=== PATIENT | female | born 1980 | race Hispanic/Latino ===

== ENCOUNTER 2019-04-12 13:06 | Emergency (ER) | payer SELFPAY ==
--- NOTE | 2019-04-12 14:17 | ER ---
Nurse's Notes [facility] Name: Lauren Wilks Age: 39 yrs Sex: Female : 1980 Arrival Date: 04/12/2019 Time: 13:08 Bed 24 Private MD: Diagnosis: Conjunctivitis Presentation: 04/12 13:16 Presenting complaint: Patient states: redness to eyes that began Henri. Transition of aa5 care: patient was not received from another setting of care. Risk Assessment: Do you want to hurt yourself or someone else? Patient reports no desire to harm self or others. Initial Sepsis Screen: Does the patient meet any 2 criteria? No. Patient's initial sepsis screen is negative. Does the patient have a suspected source of infection? No. Patient's initial sepsis screen is negative. Care prior to arrival: None. 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 - Social history:: Smoking status: Patient/guardian denies using tobacco. - Ebola Screening: : No symptoms or risks identified at this time. - Family history:: not pertinent. Screenin:55 Abuse screen: Denies threats or abuse. Denies injuries from another. Nutritional aj screening: No deficits noted. Tuberculosis screening: No symptoms or risk factors identified. Fall Risk None identified. Assessment: 13:55 General: Appears in no apparent distress. comfortable, Behavior is calm, cooperative, aj appropriate for age. Pain: Denies pain. Neuro: Level of Consciousness is awake, alert, obeys commands, Oriented to person, place, time, situation, Appropriate for age. Respiratory: Airway is patent Respiratory effort is even, unlabored, Respiratory pattern is regular, symmetrical. EENT: Reports pain in right eye and left eye redness to bilateral eyes. Derm: Skin is intact, is healthy with good turgor, Skin is pink, warm \T\ dry. normal. Vital Signs: 13:18 BP 161 / 89; Pulse 85; Resp 18 S; Temp 98.6(TE); Pulse Ox 100% on R/A; Weight 86.18 kg aa5 (R); Height 5 ft. 4 in. (162.56 cm) (R); Pain 0/10; 13:18 Body Mass Index 32.61 (86.18 kg, 162.56 cm) aa5 ED Course: 13:08 Patient arrived in ED. rg4 13:16 Arm band placed on. aa5 13:17 Triage completed. aa5 13:49 Norman De Paz MD is Attending Physician. [facility] 13:50 Alma Delia Rader, RN is Primary Nurse. aj 13:55 Patient has correct armband on for positive identification. aj 13:55 No provider procedures requiring assistance completed. aj 14:14 Tracie Vargas MD is Referral Physician. [facility] 14:28 Patient did not have IV access during this emergency room visit. ss Administered Medications: No medications were administered Outcome: 14:16 Discharge ordered by . [facility] 14:28 Discharged to home ambulatory. 14:28 Condition: good 14:28 Discharge instructions given to patient, Instructed on discharge instructions, follow up and referral plans. medication usage, Demonstrated understanding of instructions, follow-up care, medications, Prescriptions given X 3. 14:28 Patient left the ED. ss Signatures: Alma Delia Rader, RN Norman Evans MD MD cha Calderon, Audri, RN RN aa5 Michelle Bello RN RN ss Garcia, Rubi rg4 Corrections: (The following items were deleted from the chart) 13:19 13:18 LMP 03/03/2019 aa5 aa5
--- NOTE | 2019-04-12 14:17 | EDPHYS ---
Physician Documentation [facility] Name: Lauren Wilks Age: 39 yrs Sex: Female : 1980 Arrival Date: 04/12/2019 Time: 13:08 Bed 24 Private MD: ED Physician Norman De Paz HPI: 04/12 14:08 This 39 yrs old Female presents to ER via Ambulatory with complaints of gen Redness of Eye, Eye Pain. 14:08 The patient is experiencing matting or discharge, pain, redness, The patient sustained gen Unknown. to both eyes. Onset: The symptoms/episode began/occurred 3 day(s) ago. Duration: the symptoms are continuous. Aggravated by blinking, closing eye, Alleviated by nothing. Associated signs and symptoms: Pertinent positives: None. Pertinent negatives: None. Patient does not utilize any form of vision correction. Severity of symptoms: At their worst the symptoms were mild moderate in the emergency department the symptoms are unchanged. The patient has not experienced similar symptoms in the past. 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 - Social history:: Smoking status: Patient/guardian denies using tobacco. - Ebola Screening: : No symptoms or risks identified at this time. - Family history:: not pertinent. ROS: 14:08 Constitutional: Negative for fever, chills, and weight loss, ENT: Negative for injury, gen pain, and discharge, Neck: Negative for injury, pain, and swelling, Cardiovascular: Negative for chest pain, palpitations, and edema, Respiratory: Negative for shortness of breath, cough, wheezing, and pleuritic chest pain, Abdomen/GI: Negative for abdominal pain, nausea, vomiting, diarrhea, and constipation, Back: Negative for injury and pain, : Negative for injury, bleeding, discharge, and swelling, MS/Extremity: Negative for injury and deformity, Skin: Negative for injury, rash, and discoloration, Neuro: Negative for headache, weakness, numbness, tingling, and seizure, Psych: Negative for depression, anxiety, suicide ideation, homicidal ideation, and hallucinations, Allergy/Immunology: Negative for hives, rash, and allergies, Endocrine: Negative for neck swelling, polydipsia, polyuria, polyphagia, and marked weight changes, Hematologic/Lymphatic: Negative for swollen nodes, abnormal bleeding, and unusual bruising. 14:08 Eyes: Positive for pain, photophobia, redness, of the outer aspect of conjuctiva of right eye, inner aspect of conjuctiva of right eye, outer aspect of conjuctiva of left eye and inner aspect of conjunctiva of left eye. Exam: 14:08 Constitutional: This is a well developed, well nourished patient who is awake, alert, gen and in no acute distress. Head/Face: Normocephalic, atraumatic. ENT: Nares patent. No nasal discharge, no septal abnormalities noted. Tympanic membranes are normal and external auditory canals are clear. Oropharynx with no redness, swelling, or masses, exudates, or evidence of obstruction, uvula midline. Mucous membranes moist. Neck: Trachea midline, no thyromegaly or masses palpated, and no cervical lymphadenopathy. Supple, full range of motion without nuchal rigidity, or vertebral point tenderness. No Meningismus. Chest/axilla: Normal chest wall appearance and motion. Nontender with no deformity. No lesions are appreciated. Cardiovascular: Regular rate and rhythm with a normal S1 and S2. No gallops, murmurs, or rubs. Normal PMI, no JVD. No pulse deficits. Respiratory: Lungs have equal breath sounds bilaterally, clear to auscultation and percussion. No rales, rhonchi or wheezes noted. No increased work of breathing, no retractions or nasal flaring. Abdomen/GI: Soft, non-tender, with normal bowel sounds. No distension or tympany. No guarding or rebound. No evidence of tenderness throughout. Skin: Warm, dry with normal turgor. Normal color with no rashes, no lesions, and no evidence of cellulitis. MS/ Extremity: Pulses equal, no cyanosis. Neurovascular intact. Full, normal range of motion. Neuro: Awake and alert, GCS 15, oriented to person, place, time, and situation. Cranial nerves II-XII grossly intact. Motor strength 5/5 in all extremities. Sensory grossly intact. Cerebellar exam normal. Normal gait. Psych: Awake, alert, with orientation to person, place and time. Behavior, mood, and affect are within normal limits. 14:08 Eyes: Periorbital structures: appear normal, no acute changes. Vital Signs: 13:18 BP 161 / 89; Pulse 85; Resp 18 S; Temp 98.6(TE); Pulse Ox 100% on R/A; Weight 86.18 kg aa5 (R); Height 5 ft. 4 in. (162.56 cm) (R); Pain 0/10; 13:18 Body Mass Index 32.61 (86.18 kg, 162.56 cm) aa5 MDM: 13:50 Patient medically screened. [facility] 14:14 Data reviewed: vital signs, nurses notes. [facility] Administered Medications: No medications were administered Disposition: 04/12/19 14:16 Discharged to Home. Impression: Conjunctivitis. - Condition is Stable. - Discharge Instructions: Bacterial Conjunctivitis. - Prescriptions for Polytrim 10,000 unit- 1 mg/mL Ophthalmic drops - instill 1 drop by OPHTHALMIC route every 6 hours; 10 drop. Tylenol- Codeine #3 300-30 mg Oral Tablet - take 2 tablets by ORAL route every 6 hours As needed; 15 tablet. Claritin 10 mg Oral Tablet - take 1 tablet by ORAL route once daily As needed; 30 tablet. - Medication Reconciliation Form, Thank You Letter, Antibiotic Education, Prescription Opioid Use form. - Follow up: Private Physician; When: 2 - 3 days; Reason: Recheck today's complaints, Continuance of care, Re-evaluation by your physician. Follow up: Tracie Vargas MD; When: 1 - 2 days; Reason: Recheck today's complaints, Re-evaluation by your physician. - Problem is new. - Symptoms have improved. Signatures: Norman De Paz MD MD cha Calderon, Audri, RN RN aa5 Michelle Bello RN RN ss Corrections: (The following items were deleted from the chart) 14:28 14:16 04/12/2019 14:16 Discharged to Home. Impression: Conjunctivitis. Condition is ss Stable. Forms are Medication Reconciliation Form, Thank You Letter, Antibiotic Education, Prescription Opioid Use. Follow up: Private Physician; When: 2 - 3 days; Reason: Recheck today's complaints, Continuance of care, Re-evaluation by your physician. Follow up: Tracie Vargas; When: 1 - 2 days; Reason: Recheck today's complaints, Re-evaluation by your physician. Problem is new. Symptoms have improved. gen
[2019-04-12 14:36] VITALS: BP 161/89; TEMP 98.6; O2SAT 100
== END 2019-04-12 14:28 | disposition home or self-care (01) ==
LOC: ER 13:06
DX: H10.9 Unspecified conjunctivitis (principal); J30.2 Other seasonal allergic rhinitis
CPT/HCPCS: 99282

== ENCOUNTER 2019-08-14 08:46 | Emergency (ER) | payer SELFPAY ==
--- OUTSIDE RECORDS SUMMARY | 2019-08-14 08:48 | XMS REPORT ---
:1980 Author Organization [facility] Address [address] Marrufo [address] [place] [id number] Care Team Providers Name Role Phone Unavailable Unavailable Unavailable Problems This patient has no known problems. Allergies, Adverse Reactions, Alerts This patient has no known allergies or adverse reactions. Medications This patient has no known medications.
[2019-08-14] MEDS ORDERED: IBUPROFEN 400 MG TAB ONE (09:36)
[2019-08-14] MEDS ORDERED: IBUPROFEN 200 MG TAB PO ONE (09:36)
--- NOTE | 2019-08-14 10:01 | EDPHYS ---
Physician Documentation [facility] Name: Lauren Wilks Age: 39 yrs Sex: Female : 1980 Arrival Date: 08/14/2019 Time: 08:47 Bed 6 Private MD: RIAT Physician Norman De Paz HPI: 08/14 09:32 This 39 yrs old Female presents to ER via Ambulatory with complaints of Foot gen Pain. 09:32 The patient presents with decreased range of motion, pain, that is chronic. The gen complaints affect the right foot, arch of right foot and dorsum of right foot. Context: The problem was sustained at home, at an unknown location. Onset: The symptoms/episode began/occurred 5 week(s) ago. Modifying factors: The symptoms are alleviated by nothing, elevation of extremity, the symptoms are aggravated by weight bearing, movement, wearing shoes. Associated signs and symptoms: The patient has no apparent associated signs or symptoms. Severity of symptoms: At their worst the symptoms were moderate, in the emergency department the symptoms are unchanged. The patient has not experienced similar symptoms in the past. Historical: - Allergies: 09:16 No Known Allergies; sv - PMHx: 09:16 seasonal allergies; sv - PSHx: 09:16 Appendectomy; sv - Immunization history:: Adult Immunizations up to date. - Ebola Screening: : No symptoms or risks identified at this time. - Family history:: not pertinent. - Social history:: Smoking status: Patient/guardian denies using tobacco. ROS: 09:32 Constitutional: Negative for fever, chills, and weight loss, Eyes: Negative for injury, gen pain, redness, and discharge, ENT: Negative for injury, pain, and discharge, Neck: Negative for injury, pain, and swelling, Cardiovascular: Negative for chest pain, palpitations, and edema, Respiratory: Negative for shortness of breath, cough, wheezing, and pleuritic chest pain, Abdomen/GI: Negative for abdominal pain, nausea, vomiting, diarrhea, and constipation, Back: Negative for injury and pain, : Negative for injury, bleeding, discharge, and swelling, Skin: Negative for injury, rash, and discoloration, Neuro: Negative for headache, weakness, numbness, tingling, and seizure, Psych: Negative for depression, anxiety, suicide ideation, homicidal ideation, and hallucinations, Allergy/Immunology: Negative for hives, rash, and allergies, Endocrine: Negative for neck swelling, polydipsia, polyuria, polyphagia, and marked weight changes, Hematologic/Lymphatic: Negative for swollen nodes, abnormal bleeding, and unusual bruising. 09:32 MS/extremity: Positive for decreased range of motion, pain, of the right foot. Exam: 09:32 Constitutional: This is a well developed, well nourished patient who is awake, alert, gen and in no acute distress. Head/Face: Normocephalic, atraumatic. Eyes: Pupils equal round and reactive to light, extra-ocular motions intact. Lids and lashes normal. Conjunctiva and sclera are non-icteric and not injected. Cornea within normal limits. Periorbital areas with no swelling, redness, or edema. ENT: Nares patent. No nasal discharge, no septal abnormalities noted. Tympanic membranes are normal and external auditory canals are clear. Oropharynx with no redness, swelling, or masses, exudates, or evidence of obstruction, uvula midline. Mucous membranes moist. Neck: Trachea midline, no thyromegaly or masses palpated, and no cervical lymphadenopathy. Supple, full range of motion without nuchal rigidity, or vertebral point tenderness. No Meningismus. Chest/axilla: Normal chest wall appearance and motion. Nontender with no deformity. No lesions are appreciated. Cardiovascular: Regular rate and rhythm with a normal S1 and S2. No gallops, murmurs, or rubs. Normal PMI, no JVD. No pulse deficits. Respiratory: Lungs have equal breath sounds bilaterally, clear to auscultation and percussion. No rales, rhonchi or wheezes noted. No increased work of breathing, no retractions or nasal flaring. Abdomen/GI: Soft, non-tender, with normal bowel sounds. No distension or tympany. No guarding or rebound. No evidence of tenderness throughout. Back: No spinal tenderness. No costovertebral tenderness. Full range of motion. Skin: Warm, dry with normal turgor. Normal color with no rashes, no lesions, and no evidence of cellulitis. Neuro: Awake and alert, GCS 15, oriented to person, place, time, and situation. Cranial nerves II-XII grossly intact. Motor strength 5/5 in all extremities. Sensory grossly intact. Cerebellar exam normal. Normal gait. Psych: Awake, alert, with orientation to person, place and time. Behavior, mood, and affect are within normal limits. 09:32 Musculoskeletal/extremity: Extremities: pain, ROM: limited active range of motion due to pain, Circulation is intact in all extremities. Sensation intact. Compartment Syndrome exam of affected extremity: is normal. Joints: All joints are normal except Weight bearing: can bear weight with assistance only, DVT Exam: no swelling, no tenderness, negative Homans' sign noted on exam, no appreciated bluish discoloration, no erythema, no increased warmth, pain. Vital Signs: 09:16 BP 136 / 87; Pulse 85; Resp 18; Temp 98; Pulse Ox 99% ; Weight 88.45 kg; Height 5 ft. 4 sv in. (162.56 cm); Pain 610; 09:16 Body Mass Index 33.47 (88.45 kg, 162.56 cm) sv MDM: 09:12 Patient medically screened. [facility] 09:39 Data reviewed: vital signs, nurses notes, radiologic studies, plain films. [facility] 08/14 09:28 Order name: Foot Right 3 View XRAY [facility] 08/14 09:28 Order name: Walking boot; Complete Time: 10:24 [facility] Administered Medications: 09:39 Drug: Motrin 600 mg Route: PO; sv 10:24 Follow up: Response: No adverse reaction sv Disposition: 08/14/19 10:00 Discharged to Home. Impression: Pain in right foot, Strain of unspecified muscle and tendon at ankle and foot level. - Condition is Stable. - Discharge Instructions: Foot Pain. - Prescriptions for Ibuprofen 600 mg Oral Tablet - take 1 tablet by ORAL route every 8 hours As needed take with food; 21 tablet. Tylenol- Codeine #3 300-30 mg Oral Tablet - take 2 tablets by ORAL route every 6 hours As needed; 26 tablet. - Medication Reconciliation Form, Thank You Letter, Antibiotic Education, Prescription Opioid Use form. - Follow up: Private Physician; When: 2 - 3 days; Reason: Recheck today's complaints, Continuance of care, Re-evaluation by your physician. Follow up: Dr. Asim Arriaga; When: 2 - 3 days; Reason: Recheck today's complaints, Continuance of care, Re-evaluation by your physician. - Problem is new. - Symptoms have improved. Signatures: Dispatcher [employer] Jo Ann Gill RN RN sv Anderson, Corey, MD MD cha Corrections: (The following items were deleted from the chart) 10:26 10:00 08/14/2019 10:00 Discharged to Home. Impression: Pain in right foot; Strain of sv unspecified muscle and tendon at ankle and foot level. Condition is Stable. Discharge Instructions: Foot Pain. Prescriptions for Ibuprofen 600 mg Oral Tablet - take 1 tablet by ORAL route every 8 hours As needed take with food; 21 tablet, Tylenol-Codeine #3 300-30 mg Oral Tablet - take 2 tablets by ORAL route every 6 hours As needed; 26 tablet. and Forms are Medication Reconciliation Form, Thank You Letter, Antibiotic Education, Prescription Opioid Use. Follow up: Private Physician; When: 2 - 3 days; Reason: Recheck today's complaints, Continuance of care, Re-evaluation by your physician. Follow up: Dr. Asim Arriaga; When: 2 - 3 days; Reason: Recheck today's complaints, Continuance of care, Re-evaluation by your physician. Problem is new. Symptoms have improved. gen
--- NOTE | 2019-08-14 10:01 | ER ---
Nurse's Notes [facility] Name: Lauren Wilks Age: 39 yrs Sex: Female : 1980 Arrival Date: 08/14/2019 Time: 08:47 Bed 6 Private MD: Diagnosis: Pain in right foot;Strain of unspecified muscle and tendon at ankle and foot level Presentation: 08/14 09:11 Presenting complaint: Patient states: right foot pain x 1.5 months, reports she may sv have stepped wrong or twisted her foot when the pain started. Feels like a "pulling sensation". Transition of care: patient was not received from another setting of care. Onset of symptoms was June 2019. Risk Assessment: Do you want to hurt yourself or someone else? Patient reports no desire to harm self or others. Initial Sepsis Screen: Does the patient meet any 2 criteria? No. Patient's initial sepsis screen is negative. Does the patient have a suspected source of infection? No. Patient's initial sepsis screen is negative. Care prior to arrival: None. 09:11 Method Of Arrival: Ambulatory sv 09:11 Acuity: BRIANA 4 sv Triage Assessment: 09:15 General: Appears in no apparent distress. uncomfortable, well groomed, well developed, sv Behavior is calm, cooperative, appropriate for age. Pain: Complains of pain in lateral side of right foot Pain currently is 6 out of 10 on a pain scale. Quality of pain is described as tender, Pain began 1.5 months ago Is intermittent, episodic, Aggravated by weight bearing. Neuro: Level of Consciousness is awake, alert, obeys commands, Oriented to person, place, time, situation, Moves all extremities. Full function Gait is steady. Cardiovascular: Patient's skin is warm and dry. Pulses are 3+ in right dorsalis pedis artery. Respiratory: Respiratory effort is even, unlabored, Respiratory pattern is regular, symmetrical. Derm: Skin is pink, warm \\T\\ dry. Musculoskeletal: Range of motion: intact in all extremities. Historical: - Allergies: 09:16 No Known Allergies; sv - PMHx: 09:16 seasonal allergies; sv - PSHx: 09:16 Appendectomy; sv - Immunization history:: Adult Immunizations up to date. - Ebola Screening: : No symptoms or risks identified at this time. - Family history:: not pertinent. - Social history:: Smoking status: Patient/guardian denies using tobacco. Screenin:17 Abuse screen: Denies threats or abuse. Denies injuries from another. Nutritional sv screening: No deficits noted. Tuberculosis screening: No symptoms or risk factors identified. Fall Risk None identified. Assessment: 09:47 Reassessment: Patient appears in no apparent distress at this time. No changes from sv previously documented assessment. Patient and/or family updated on plan of care and expected duration. Pain level reassessed. Patient is alert, oriented x 3, equal unlabored respirations, skin warm/dry/pink. 10:26 Reassessment: Patient appears in no apparent distress at this time. No changes from sv previously documented assessment. Patient and/or family updated on plan of care and expected duration. Pain level reassessed. Patient is alert, oriented x 3, equal unlabored respirations, skin warm/dry/pink. Vital Signs: 09:16 BP 136 / 87; Pulse 85; Resp 18; Temp 98; Pulse Ox 99% ; Weight 88.45 kg; Height 5 ft. 4 sv in. (162.56 cm); Pain 6/10; 09:16 Body Mass Index 33.47 (88.45 kg, 162.56 cm) sv ED Course: 08:47 Patient arrived in ED. as 09:12 Norman De Paz MD is Attending Physician. gen 09:15 Jo Ann Watts, WILDER is Primary Nurse. sv 09:16 Triage completed. sv 09:17 ED physician to see patient. sv 09:17 Arm band placed on. sv 09:17 Patient has correct armband on for positive identification. Bed in low position. Call sv light in reach. Pulse ox on. NIBP on. Door closed. Head of bed elevated. 09:40 Awaiting for x-ray. sv 09:45 X-ray(s) taken. sv 09:47 X-ray completed. Portable x-ray completed in exam room. Patient tolerated procedure jk well. 09:47 Awaiting radiology results. sv 09:48 Foot Right 3 View XRAY In Process Unspecified. EDMS 09:59 Asim Arriaga DPM is Referral Physician. gen 10:24 No provider procedures requiring assistance completed. Patient did not have IV access sv during this emergency room visit. 10:24 right foot walking boot. sv Administered Medications: 09:39 Drug: Motrin 600 mg Route: PO; sv 10:24 Follow up: Response: No adverse reaction sv Outcome: 10:00 Discharge ordered by MD. blevins 10:25 Discharged to home ambulatory, with family, with walking boot sv 10:25 Condition: stable 10:25 Discharge instructions given to patient, Instructed on discharge instructions, follow up and referral plans. no drinking with medication, no driving heavy equipment, medication usage, walking boot application Demonstrated understanding of instructions, follow-up care, medications, walking boot Prescriptions given X 2. 10:26 Patient left the ED. sv Signatures: Dispatcher [employer] EDJo Ann Davis RN RN sv Anderson, Corey, MD MD cha Martinez, Amelia as Knight, Jason jk Corrections: (The following items were deleted from the chart) 09:17 09:16 Pulse 85bpm; Resp 18bpm; Pulse Ox 99%; Temp 98F; 88.45 kg; Height 5 ft. 4 in.; sv BMI: 33.4; Pain 6/10; sv
--- NOTE | 2019-08-14 11:21 | RAD REPORT ---
EXAM DESCRIPTION: RAD - Foot Right 3 View - 08/14/2019 9:51 am CLINICAL HISTORY: PAIN COMPARISON: No comparisons FINDINGS: Moderate soft tissue swelling is seen along the fifth metatarsal. No acute fracture seen.
[2019-08-14 14:34] VITALS: BP 136/87; TEMP 98; O2SAT 99
== END 2019-08-14 10:26 | disposition home or self-care (01) ==
LOC: ER 08:46
DX: S96.911A Strain of unspecified muscle and tendon at ankle and foot level, right foot, initial encounter (principal); X58.XXXA Exposure to other specified factors, initial encounter; Y93.9 Activity, unspecified; Y92.009 Unspecified place in unspecified non-institutional (private) residence as the place of occurrence of the external cause
CPT/HCPCS: 99284

== ENCOUNTER 2020-03-25 12:52 | Emergency (ER) | payer OTHER, SELFPAY ==
--- OUTSIDE RECORDS SUMMARY | 2020-03-25 13:01 | XMS REPORT | Continuity of Care Document ---
:1980 Author Organization [facility] t Address [address] [place] [address] [place] [id number] Care Team Providers Name Role Phone Unavailable Unavailable Unavailable Problems This patient has no known problems. Allergies, Adverse Reactions, Alerts This patient has no known allergies or adverse reactions. Medications This patient has no known medications. Procedures This patient has no known procedures. Results This patient has no known results.
--- NOTE | 2020-03-25 15:08 | ER ---
Nurse's Notes [facility] Name: Lauren Wilks Age: 40 yrs Sex: Female : 1980 Arrival Date: 03/25/2020 Time: 12:54 Bed 19 Private MD: Diagnosis: Viral syndrome Presentation: 03/25 13:27 Chief complaint: Patient states: I started with a cough Friday, feeling weak and ca1 fatigued, no taste and smell. Denies fever. Denies SOB. Coronavirus screen: Patient reports a cough. Patient denies shortness of breath or difficulty breathing. Patient denies measured and/or subjective temperature greater than 100.4F prior to today's visit. Patient denies travel on a cruise ship or to a country the [facility] currently lists as an affected area. Patient denies contact with known and/or suspected case of COVID-19. Surgical mask in place, instructed to keep at all times and distance self from others in the lobby. Verbalized understanding. Ebola Screen: Patient negative for fever greater than or equal to 101.5 degrees Fahrenheit, and additional compatible Ebola Virus Disease symptoms Patient denies exposure to infectious person. Patient denies travel to an Ebola-affected area in the 21 days before illness onset. No symptoms or risks identified at this time. Initial Sepsis Screen: Does the patient meet any 2 criteria? No. Patient's initial sepsis screen is negative. Does the patient have a suspected source of infection? No. Patient's initial sepsis screen is negative. Risk Assessment: Do you want to hurt yourself or someone else? Patient reports no desire to harm self or others. 13:27 Method Of Arrival: Ambulatory ca1 13:27 Acuity: BRIANA 3 ca1 Triage Assessment: 14:30 General: Appears in no apparent distress. uncomfortable, Behavior is calm, cooperative, bp appropriate for age. Pain: Denies pain. EENT: No deficits noted. Neuro: Reports weakness. Cardiovascular: Rhythm is sinus tachycardia. Respiratory: Reports cough that is. GI: No signs and/or symptoms were reported involving the gastrointestinal system. : No signs and/or symptoms were reported regarding the genitourinary system. Derm: No deficits noted. Musculoskeletal: No deficits noted. 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 - Social history:: Smoking status: Patient denies any tobacco usage or history of. - Family history:: not pertinent. - Hospitalizations: : No recent hospitalization is reported. Screenin:35 Abuse screen: Denies threats or abuse. Denies injuries from another. Nutritional bp screening: No deficits noted. Tuberculosis screening: No symptoms or risk factors identified. Fall Risk None identified. Assessment: 14:35 General: SEE TRIAGE NOTE. bp 15:17 Reassessment: PT D/C HOME AMBULATORY, DX WITH VIRAL SYNDROME. PT TO HOME QUARANTINE bp UNTIL COVID RESULTS. Vital Signs: 13:27 BP 135 / 93; Pulse 102; Resp 16 S; Temp 97.6(TE); Pulse Ox 98% on R/A; Weight 90.72 kg ca1 (R); Height 5 ft. 4 in. (162.56 cm) (R); 15:17 BP 136 / 95; Pulse 87; Resp 16; Pulse Ox 98% ; bp 13:27 Body Mass Index 34.33 (90.72 kg, 162.56 cm) ca1 ED Course: 12:54 Patient arrived in ED. ag5 13:29 Triage completed. ca1 14:23 Víctor Basurto MD is Attending Physician. rn 14:25 Josee Simental, WILDER is Primary Nurse. ls4 14:35 Arm band placed on. bp 14:35 Patient has correct armband on for positive identification. Bed in low position. Call bp light in reach. Side rails up X2. 15:18 No provider procedures requiring assistance completed. Patient did not have IV access bp during this emergency room visit. Administered Medications: No medications were administered Outcome: 15:07 Discharge ordered by MD. rn 15:18 Discharged to home ambulatory. bp 15:18 Condition: stable 15:18 Discharge instructions given to patient, Instructed on discharge instructions, follow up and referral plans. Demonstrated understanding of instructions, follow-up care. 15:19 Patient left the ED. bp Addendum: 03/28/2020 13:32 Addendum: Other Dr. Aguillon notified of positive Covid result. Pt verbalizes s s understanding importance of returning to ER for any worsening of symptoms. Pt has not questions at this time. Signatures: Víctor Basurto MD MD rn Smirch, Shelby, RN RN ss Asim Jenkins RN RN bp Stewart, Lisa, RN RN ls4 Helena Sharp RN RN ca1 Renetta, Michael 5
--- NOTE | 2020-03-25 15:08 | EDPHYS ---
Physician Documentation [facility] Name: Lauren Wilks Age: 40 yrs Sex: Female : 1980 Arrival Date: 03/25/2020 Time: 12:54 Bed 19 Private MD: ED Physician Víctor Basurto HPI: 03/25 14:50 This 40 yrs old Female presents to ER via Ambulatory with complaints of Cough, rn Weakness, Decreased taste. 14:50 The patient or guardian reports cough, flu symptoms. Onset: The symptoms/episode rn began/occurred 3 day(s) ago. Severity of symptoms: At their worst the symptoms were mild, in the emergency department the symptoms are unchanged. Modifying factors: The symptoms are alleviated by nothing, the symptoms are aggravated by nothing. 14:51 The patient has not experienced similar symptoms in the past. The patient has not rn recently seen a physician. Reports chills, headache, cough, muscle aches, fatigue, for 3-4 days, no known sick contacts, has alos lost sense of taste and smell. . 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 - Social history:: Smoking status: Patient denies any tobacco usage or history of. - Family history:: not pertinent. - Hospitalizations: : No recent hospitalization is reported. ROS: 14:51 Constitutional: Negative for fever, and weight loss, Eyes: Negative for injury, pain, rn redness, and discharge, Neck: Negative for injury, pain, and swelling, Cardiovascular: Negative for chest pain, palpitations, and edema, Respiratory: Negative for shortness of breath, wheezing, and pleuritic chest pain, Abdomen/GI: Negative for abdominal pain, nausea, vomiting, diarrhea, and constipation, Back: Negative for injury and pain, : Negative for injury, bleeding, discharge, and swelling, MS/Extremity: Negative for injury and deformity, Skin: Negative for injury, rash, and discoloration, Neuro: Negative for numbness, tingling, and seizure. Exam: 14:51 Constitutional: This is a well developed, well nourished patient who is awake, alert, rn and in no acute distress. Head/Face: Normocephalic, atraumatic. Eyes: Pupils equal round, extra-ocular motions intact. Lids and lashes normal. Conjunctiva and sclera are non-icteric and not injected. Cardiovascular: Regular rate and rhythm. No pulse deficits. Respiratory: Speaking full sentences. No increased work of breathing, no retractions or nasal flaring. Abdomen/GI: soft, non-tender MS/ Extremity: Pulses equal, no cyanosis. Neuro: Awake and alert, GCS 15 Vital Signs: 13:27 BP 135 / 93; Pulse 102; Resp 16 S; Temp 97.6(TE); Pulse Ox 98% on R/A; Weight 90.72 kg ca1 (R); Height 5 ft. 4 in. (162.56 cm) (R); 15:17 BP 136 / 95; Pulse 87; Resp 16; Pulse Ox 98% ; bp 13:27 Body Mass Index 34.33 (90.72 kg, 162.56 cm) ca1 MDM: 14:23 Patient medically screened. rn 15:06 Differential Diagnosis: Bronchitis Upper Respiratory Infection Viral Syndrome rn Pneumonia. Data reviewed: vital signs, nurses notes, and as a result, I will discharge patient. Counseling: I had a detailed discussion with the patient and/or guardian regarding: the historical points, exam findings, and any diagnostic results supporting the discharge/admit diagnosis, the need for outpatient follow up, to return to the emergency department if symptoms worsen or persist or if there are any questions or concerns that arise at home. Special discussion: I discussed with the patient/guardian in detail that at this point there is no indication for admission to the hospital. It is understood, however, that if the symptoms persist or worsen the patient needs to return immediately for re-evaluation. ED course: No oxygen requirement, no inpatient criteria met, tested for COVID, will dc home with return precautions. . 03/25 14:39 Order name: RONNY rn Administered Medications: No medications were administered Disposition: 03/25/20 15:07 Discharged to Home. Impression: Viral syndrome. - Condition is Stable. - Discharge Instructions: RONNY. - Medication Reconciliation Form, Thank You Letter, Antibiotic Education, Prescription Opioid Use, Work release form form. - Follow up: Private Physician; When: As needed; Reason: Recheck today's complaints, Re-evaluation by your physician. - Problem is new. - Symptoms are unchanged. Signatures: Dispatcher [employer] Víctor Avalos MD MD rn Peltier, Brian RN RN Helena Oliver RN RN ca1 Corrections: (The following items were deleted from the chart) 15:19 15:07 03/25/2020 15:07 Discharged to Home. Impression: Viral syndrome. Condition is bp Stable. Forms are Medication Reconciliation Form, Thank You Letter, Antibiotic Education, Prescription Opioid Use. Follow up: Private Physician; When: As needed; Reason: Recheck today's complaints, Re-evaluation by your physician. Problem is new. Symptoms are unchanged. rn
[2020-03-25 15:36] VITALS: TEMP 97.6; O2SAT 98
[2020-03-25 15:37] VITALS: BP 136/95
== END 2020-03-25 15:19 | disposition home or self-care (01) ==
LOC: ER 12:52
DX: U07.1 COVID-19 (principal); B34.9 Viral infection, unspecified
CPT/HCPCS: 99284; U0001